=== PATIENT | female | born 2000 | race Caucasian/White ===

== ENCOUNTER 2023-12-29 09:40 | Emergency (ER) | payer OTHER ==
[~2023-12-29] VITALS: Ht 160 cm; Wt 61.4 kg
[2023-12-29 09:49] VITALS: TEMP 98.8
[2023-12-29 10:24] LABS: BASO % 0.3 % (0.0-2.0); EOS # 0.1 K/mm3 (0.0-0.7); EOS % 0.7 % (0.0-4.0); GRAN # 6.1 K/mm3 (1.4-6.5); GRAN % 67.9 % (42.2-75.2); HEMOGLOBIN 11.6 g/dl (12.5-16.0); LYMPH % 21.9 % (20.0-51.0); MEAN CELL VOLUME 85 fl (80.0-100.0); MEAN CORPUSCULAR HEMOGLOBIN 28 pg (27-31); MEAN CORPUSCULAR HGB CONC 33 g/dl (33.0-37.0); MEAN PLATELET VOLUME 10.4 fl (7.4-10.4); MONO # 0.8 K/mm3 (0.1-0.6); MONO % 8.9 % (1.7-9.3); PLATELET COUNT 185 K/mm3 (130-400); RED BLOOD COUNT 4.13 M/mm3 (4.10-5.30); REDCELL DISTRIBUTION WIDTH-CV 15.7 % (11.5-14.5)
[2023-12-29 10:41] LABS: URINE APPEARANCE CLEAR (CLEAR/HAZY); URINE BLOOD NEGATIVE (NEGATIVE); URINE COLOR YELLOW (YELLOW); URINE GLUCOSE NEGATIVE (NEGATIVE); URINE KETONE NEGATIVE (NEGATIVE); URINE NITRATE NEGATIVE (NEGATIVE); URINE PROTEIN(semi-quant) NEGATIVE (NEGATIVE)
[2023-12-29 10:46] LABS: ALANINE AMINOTRANSFERASE 18 U/L (0-55); ALBUMIN 3.3 g/dL (3.5-5.0); ALKALINE PHOSPHATASE 52 U/L (40-150); ANION GAP 10 mmol/L (7-16); AST,SGOT 13 U/L (5-34); BILIRUBIN,TOTAL 0.7 mg/dL (0.2-1.2); BLOOD UREA NITROGEN 13 mg/dL (7-19); CALCIUM 8.8 mg/dL (8.4-10.2); CHLORIDE 106 mEq/L (98-107); CREATININE, serum 0.84 mg/dL (0.57-1.11); ERYTHROCYTE SEDIMENTATION RATE 26 mm/hr (0-20); GLUCOSE 127 mg/dL (70-99); POTASSIUM 4.3 mEq/L (3.5-4.5); SODIUM 137 mEq/L (136-145); TOTAL PROTEIN 6.2 g/dl (6.2-8.1)
[2023-12-29 10:52] LABS: TROPONIN-I < 0.010 ng/mL (0.00-0.033)
[2023-12-29 10:59] LABS: COLLECTION METHOD CLEAN CATCH
[2023-12-29] MEDS ORDERED: Iohexol 300 - 100 ML VIAL IV ONE (13:35)
[2023-12-29] MEDS ORDERED: NS 100 ML IV SCH (13:35)
[2023-12-29 14:13] LABS: C-REACTIVE PROTEIN 17.06 mg/dL (0.00-0.50)
[2023-12-29] MEDS ORDERED: PREDNISONE20 MG PO (15:06)
[2023-12-29 15:22] VITALS: BP 99/68; PULSE 102
== END 2023-12-29 15:22 | disposition home or self-care (01) ==
LOC: COL.ER 09:40
PROVIDERS: Nurse Practitioner
DX: I31.9 Disease of pericardium, unspecified (principal)
CPT/HCPCS: Q9967